=== PATIENT | male | born 1955 | race Hispanic/Latino ===

== ENCOUNTER 2018-09-15 05:34 | Day surgery (SDC) | payer MEDICAID ==
[~2018-09-15] VITALS: Ht 165.1 cm; Wt 71.7 kg
[~2018-09-15 05:34] MED LIST: ACET325C3 PO; AEC81 PO; ARIP15TA2 PO; ATOR10TA69 PO; LOSA100T58 PO; SODIUM CHLORIDE 0.9% 1000ML 1,000 ML IV ONE
[2018-09-15 06:03] VITALS: BP 140/101
[2018-09-15] MEDS ORDERED: LIDOCAINE HCL 1% 20 ML VIAL ONE (06:05)
[2018-09-15] MEDS ORDERED: PROPOFOL 1000 MG/100 ML 100 ML IV ONE (06:05)
[2018-09-15] MEDS ORDERED: PROPOFOL 10 MG/ML 20ML VIAL IV ONE (06:56)
[2018-09-15 07:10] VITALS: BP 128/81
[2018-09-15 07:15] VITALS: BP 120/85
[2018-09-15 07:21] VITALS: BP 131/92
== END 2018-09-15 08:12 | disposition home or self-care (01) ==
LOC: DAH 05:34
PROVIDERS: ATTEND Internal Medicine
DX: K63.5 Polyp of colon (principal); D12.8 Benign neoplasm of rectum; K64.0 First degree hemorrhoids; R19.5 Other fecal abnormalities; K57.30 Diverticulosis of large intestine without perforation or abscess without bleeding; Z86.010 Personal history of colon polyps; F20.9 Schizophrenia, unspecified; G89.29 Other chronic pain; E78.5 Hyperlipidemia, unspecified; I10 Essential (primary) hypertension; Z98.49 Cataract extraction status, unspecified eye; Z79.82 Long term (current) use of aspirin; Z79.899 Other long term (current) drug therapy
CPT/HCPCS: 45380; 45385; 88305; A4606; J2704 ×2; J7030

== ENCOUNTER 2023-06-03 23:20 | Emergency (ER) | payer OTHER, MEDICAID ==
[~2023-06-03] VITALS: Ht 165.1 cm; Wt 78.0 kg
[~2023-06-03 23:20] MED LIST changes: -ACET325C3 PO; -AEC81 PO; +AMLO-258 PO; -ARIP15TA2 PO; -ATOR10TA69 PO; +BUSP10TA3 PO; -LOSA100T58 PO; +LURA40TA2 PO; -SODIUM CHLORIDE 0.9% 1000ML 1,000 ML IV ONE
[2023-06-03] MEDS ORDERED: FUROSEMIDE 40MG VIAL IV ONE (23:30)
[2023-06-03] MEDS ORDERED: HYDRALAZINE 20MG/ML VIAL IV ONE (23:30)
[2023-06-03] MEDS ORDERED: SOLU-MEDROL 125MG VIAL IVP ONE (23:30)
[2023-06-03 23:55] LABS: ABG BASE EXCESS -2.7 mmol/L (-2.0-3.0); ABG HCO3 23.1 mmol/L (21.0-28.0); ABG OXYGEN SATURATION 89.5 % (95.0-99.0); ABG PCO2 44 mmHg (35-48); ABG PH 7.343 (7.35-7.450); DEVICE COMMENT RR RN ZU; PO2, ARTERIAL BG 59.7 mmHg (83.0-108.0); VENT MODE, BG NC (ROOM AIR)
[2023-06-04] LABS: BASOPHILS # (AUTO) 0.03 K/uL (0.00-0.20); BASOPHILS % (AUTO) 0.3 % (0.0-5.0); EOSINOPHILS # (AUTO) 0.06 K/uL (0.00-0.70); EOSINOPHILS % (AUTO) 0.6 % (0.0-8.0); HEMATOCRIT 48.7 % (42-54); IMMATURE GRANULOCYTE ABSOLUTE 0.06 K/uL (0-1); LYMPHOCYTES # (AUTO) 1.7 K/uL (1.0-4.8); LYMPHOCYTES % (AUTO) 16.8 % (21.0-51.0); MEAN CORPUSCULAR HEMOGLOBIN 31.1 pg (27.0-33.0); MEAN CORPUSCULAR HGB CONC 32.6 g/dL (32.0-36.0); MEAN CORPUSCULAR VOLUME 95.3 fL (79-99); MONOCYTES # (AUTO) 0.5 K/uL (0.1-1.0); MONOCYTES % (AUTO) 5.1 % (3.0-13.0); NEUTROPHILS # (AUTO) 7.6 K/uL (1.8-7.7); NEUTROPHILS % (AUTO) 76.6 % (40.0-77.0); PLATELET COUNT (AUTO) 206 K/uL (130-400); RED BLOOD CELL COUNT(AUTO) 5.11 MIL/uL (4.50-6.20); RED CELL DISTRIBUTION WIDTH 12.4 % (11.0-15.5); WHITE BLOOD COUNT (AUTO) 9.9 K/uL (4.8-10.8)
[2023-06-04 00:12] LABS: INR <= 0.93 (0.85-1.15); PROTHROMBIN TIME 10.5 SEC (9.6-11.6)
[2023-06-04 00:14] LABS: CREATININE 1.4 mg/dL (0.5-1.5); PARTIAL THROMBOPLASTIN TIME 26.3 SEC (26.3-35.5); POTASSIUM 3.4 mmol/L (3.5-5.1)
[2023-06-04 00:18] LABS: ALBUMIN 3.3 g/dL (3.5-5.0); BILIRUBIN,TOTAL 0.3 mg/dL (0.2-1.0); TOTAL PROTEIN, SERUM 7.4 g/dL (6.0-8.3)
[2023-06-04 00:34] LABS: B-TYPE NATRIURETIC PEPTIDE 1110 pg/mL (0-100)
[2023-06-04 00:37] LABS: APPEARANCE,URINE CLEAR (CLEAR); BILIRUBIN,URINE NEGATIVE (NEGATIVE); COLOR,URINE COLORLESS (YELLOW); GLUCOSE, URINE (UA) NEGATIVE (NEGATIVE); KETONES,URINE NEGATIVE (NEGATIVE); LEUKOCYTE ESTERASE ,URINE NEGATIVE Leu/uL (NEGATIVE); NITRATE,URINE NEGATIVE (NEGATIVE); OCCULT BLOOD,URINE NEGATIVE (NEGATIVE); PH,URINE 5.5 (5.0-8.0); PROTEIN,URINE 10 mg/dL (NEGATIVE); UROBILINOGEN,URINE 0.2 mg/dL (0.2-1.0)
[2023-06-04 00:48] LABS: ADD UA MICROSCOPIC NO
[2023-06-04 00:52] LABS: RBC,URINE 0-1 /HPF (0-1); WBC,URINE 0-1 /HPF (0-1)
[2023-06-04 01:05] VITALS: BP 145/88; PULSE 99; RESP 20; O2SAT 99
[2023-06-04] MEDS ORDERED: ASPIRIN 81MG CHEW TAB PO ONE (01:30)
[2023-06-04] MEDS ORDERED: HEPARIN 25,000 UNITS/250ML D5W 250 ML IV PRN (01:30)
[2023-06-04] MEDS ORDERED: HEPARIN 5,000 UNIT VIAL IV PRN (02:00)
[2023-06-04] MEDS ORDERED: HEPARIN 25,000 UNITS/250ML D5W 250 ML IV SCH (02:00)
== END 2023-06-04 01:15 | disposition left against medical advice (07) ==
LOC: EDH 23:20
DX: I21.4 Non-ST elevation (NSTEMI) myocardial infarction (principal); I11.0 Hypertensive heart disease with heart failure; I50.9 Heart failure, unspecified; E11.9 Type 2 diabetes mellitus without complications; E78.00 Pure hypercholesterolemia, unspecified; F20.9 Schizophrenia, unspecified
CPT/HCPCS: 99291; 96374; 71045; 82550; 84484; 80053; 82803; 83880; 85025; 85610; 85730; 87040 ×2; 87088; 83605; 81003; 81001; 36415 ×2; 99292; 93005; 36600; 96375; J2930; J0360; J1940